=== PATIENT | male | born 1975 | race Two or more races ===

== ENCOUNTER 2020-07-01 15:36 | Emergency (ER) | payer SELFPAY ==
[2020-07-01] MEDS ORDERED: Sodium Chloride 0.9% 10 ML Syringe FLUSH PRN (15:46)
[2020-07-01] MEDS ORDERED: Aspirin 81 MG Tab.Chew PO ONE (15:46)
--- NOTE | 2020-07-01 17:09 | EDM.PDOC ---
ED HPI GENERAL MEDICAL PROBLEM - General Chief Complaint: Chest Pain Stated Complaint: CHEST PAIN Time Seen by Provider: 07/01/20 15:42 Source of Information: Reports: Patient History Limitations: Reports: No Limitations - History of Present Illness INITIAL COMMENTS - FREE TEXT/NARRATIVE: The patient presents with chest pain on the left. This woke him up at 4am. The pain is sharp and it comes and goes. He has no shortness of breath with it. Exertion does not make it worse. He has no fever, chills, cough, congestion, runny nose, abdominal pain, nausea, vomiting, pain or swelling in his legs. He does smoke. He has no other medical problems. He had an aunt that had pleurisy once. Onset: Gradual Duration: Hour(s): Location: Reports: Chest Quality: Reports: Sharp Severity: Moderate Improves with: Reports: None Worsens with: Reports: None Associated Symptoms: Reports: Chest Pain. Denies: Cough, Fever/Chills, Headaches, Nausea/Vomiting, Shortness of Breath Back Pain Score (Numeric/FACES): 4 - Related Data Allergies Allergy/AdvReac Type Severity Reaction Status Date / Time No Known Allergies Allergy Verified 07/01/20 15:50 Home Meds: Home Meds . [No Known Home Meds] 07/01/20 [History] Social & Family History - Tobacco Use Tobacco Use Status *Q: Current Every Day Tobacco User Years of Tobacco use: 30 Packs/Tins Daily: 0.5 ED ROS GENERAL - Review of Systems Review Of Systems: See Below Constitutional: Reports: No Symptoms HEENT: Reports: No Symptoms Respiratory: Reports: No Symptoms Cardiovascular: Reports: Chest Pain Endocrine: Reports: No Symptoms GI/Abdominal: Reports: No Symptoms : Reports: No Symptoms Musculoskeletal: Reports: No Symptoms Skin: Reports: No Symptoms ED EXAM, GENERAL - Physical Exam Exam: See Below Exam Limited By: No Limitations General Appearance: Alert, No Apparent Distress Ears: Normal External Exam Nose: Normal Inspection Head: Atraumatic, Normocephalic Neck: Normal Inspection Respiratory/Chest: No Respiratory Distress, Lungs Clear, Normal Breath Sounds Cardiovascular: Regular Rate, Rhythm, No Edema, No Murmur GI/Abdominal: Soft, Non-Tender, No Organomegaly, No Mass Back Exam: Normal Inspection Extremities: Normal Inspection #1 Interpretation EKG Date: 07/01/20 Time: 15:46 Rhythm: NSR Rate (Beats/Min): 91 [place]: Normal P-Wave: Present QRS: Normal ST-T: Normal QT: Normal Course - Vital Signs Last Recorded V/S: Last Vital Signs Temp 97.5 F 07/01/20 15:47 Pulse 92 07/01/20 15:47 Resp 16 07/01/20 15:47 BP 151/91 H 07/01/20 15:47 Pulse Ox 98 07/01/20 15:47 - Orders/Labs/Meds Orders: Active Orders 24 hr Category Date Time Status Cardiac Monitoring [RC] . DIRECTED Care 07/01/20 15:46 Active EKG Documentation Completion [RC] STAT Care 07/01/20 15:47 Active Peripheral IV Care [RC] . DIRECTED Care 07/01/20 15:47 Active Chest 2V [CR] Stat Exams 07/01/20 15:47 Taken Sodium Chloride 0.9% [Saline Flush] Med 07/01/20 15:46 Active 10 ml FLUSH ASDIRECTED PRN Peripheral IV Insertion Adult [OM.PC] Stat Oth 07/01/20 15:46 Ordered Medication Orders Sodium Chloride (Saline Flush) 10 ml FLUSH ASDIRECTED PRN PRN Reason: Keep Vein Open Labs: Laboratory Tests 07/01/20 07/01/20 07/01/20 Range/Units 16:15 16:15 16:15 WBC 5.95 (4.23-9.07) K/mm3 RBC 5.43 (4.63-6.08) M/mm3 Hgb 15.7 (13.7-17.5) gm/dl Hct 45.2 (40.1-51.0) % MCV 83.2 (79.0-92.2) fl MCH 28.9 (25.7-32.2) pg MCHC 34.7 (32.2-35.5) g/dl RDW Std Deviation 40.1 (35.1-43.9) fL Plt Count 298 (163-337) K/mm3 MPV 8.8 L (9.4-12.3) fl Neut % (Auto) 54.8 (34.0-67.9) % Lymph % (Auto) 33.8 (21.8-53.1) % [place] % (Auto) 9.4 (5.3-12.2) % Eos % (Auto) 1.3 (0.8-7.0) Baso % (Auto) 0.5 (0.1-1.2) % Neut # (Auto) 3.26 (1.78-5.38) K/mm3 Lymph # (Auto) 2.01 (1.32-3.57) K/mm3 [place] # (Auto) 0.56 (0.30-0.82) K/mm3 Eos # (Auto) 0.08 (0.04-0.54) K/mm3 Baso # (Auto) 0.03 (0.01-0.08) K/mm3 D-Dimer, Quantitative < 0.19 L (0.19-0.50) mg/L Sodium 138 (136-145) mEq/L Potassium 3.9 (3.5-5.1) mEq/L Chloride 105 (98-107) mEq/L Carbon Dioxide 25 (21-32) mEq/L Anion Gap 11.9 (5-15) BUN 14 (7-18) mg/dL Creatinine 1.2 (0.7-1.3) mg/dL Est Cr Clr Drug Dosing 77.74 mL/min Estimated GFR (MDRD) > 60 (>60) mL/min BUN/Creatinine Ratio 11.7 L (14-18) Glucose 114 H (74-106) mg/dL Calcium 8.9 (8.5-10.1) mg/dL Total Bilirubin 0.6 (0.2-1.0) mg/dL AST 16 (15-37) U/L ALT 42 (16-63) U/L Alkaline Phosphatase 68 (46-116) U/L Troponin I < 0.017 (0.00-0.056) ng/mL Total Protein 7.0 (6.4-8.2) g/dl Albumin 3.8 (3.4-5.0) g/dl Globulin 3.2 gm/dL Albumin/Globulin Ratio 1.2 (1-2) Meds: Medications Generic Name Dose Route Start Last Admin Trade Name Freq PRN Reason Stop Dose Admin Sodium Chloride 10 ml 07/01/20 15:46 Saline Flush FLUSH ASDIRECTED PRN Keep Vein Open Discontinued Medications Generic Name Dose Route Start Last Admin Trade Name Freq PRN Reason Stop Dose Admin Aspirin 324 mg 07/01/20 15:46 07/01/20 16:12 Aspirin PO 07/01/20 15:47 324 mg ONETIME ONE Administration - Re-Assessments/Exams Free Text/Narrative Re-Assessment/Exam: 07/01/20 17:17 I ordered an IV saline lock, aspirin, CXR, EKG and labs. His EKG shows a NSR with no acute changes. His CXR shows nothing acute. His CBC and CMP look good. His troponin and D-dimer is negative. Departure - Departure Time of Disposition: 17:25 Disposition: Home, Self-Care 01 Condition: Good Clinical Impression: Atypical chest pain, Pleurisy Referrals: PCP,None [Primary Care Provider] - Cassia Joshi, [employer] REPRESENTATIVE [Nurse Practitioner] - 1 Week Forms: ED Department Discharge Additional Instructions: Take aspirin or tylenol for pain. Please return if you are worse. Try to stop smoking. That can make this worse. Sepsis Event Note (ED) - Evaluation Sepsis Screening Result: No Definite Risk - Focused Exam Vital Signs: Vital Signs Temp Pulse Resp BP Pulse Ox 07/01/20 15:47 97.5 F 92 16 151/91 H 98 - My Orders Last 24 Hours: My Active Orders 07/01/20 15:46 Cardiac Monitoring [RC] . DIRECTED Sodium Chloride 0.9% [Saline Flush] 10 ml FLUSH ASDIRECTED PRN Peripheral IV Insertion Adult [OM.PC] Stat 07/01/20 15:47 EKG Documentation Completion [RC] STAT Peripheral IV Care [RC] . DIRECTED Chest 2V [CR] Stat - Assessment/Plan Last 24 Hours: My Active Orders 07/01/20 15:46 Cardiac Monitoring [RC] . DIRECTED Sodium Chloride 0.9% [Saline Flush] 10 ml FLUSH ASDIRECTED PRN Peripheral IV Insertion Adult [OM.PC] Stat 07/01/20 15:47 EKG Documentation Completion [RC] STAT Peripheral IV Care [RC] . DIRECTED Chest 2V [CR] Stat
--- NOTE | 2020-07-04 14:14 | CR ---
PROCEDURE INFORMATION: Exam: XR Chest, 2 Views Exam date and time: 07/01/2020 4:00 PM Age: 44 years old Clinical indication: Chest pain TECHNIQUE: Imaging protocol: XR of the chest Views: 2 views. COMPARISON: No relevant prior studies available. FINDINGS: Lungs: Atelectatic changes noted within the lung bases. Pleural space: Unremarkable. No pleural effusion. No pneumothorax. Heart/Mediastinum: Unremarkable. No cardiomegaly. Bones/joints: Unremarkable. IMPRESSION: Atelectatic changes noted within the lung bases. Thank you for allowing us to participate in the care of your patient. Dictated and Authenticated by: Grover Fischer DO 07/01/2020 5:23 PM Central Time ([place] & [place]) LAURIE
== END 2020-07-01 17:27 | disposition home or self-care (01) ==
LOC: JD.ED 15:36
DX: R09.1 Pleurisy (principal); R07.89 Other chest pain; F17.210 Nicotine dependence, cigarettes, uncomplicated
CPT/HCPCS: 36415; 71046; 80053; 84484; 85025; 85379; 93005; 99285; A9270; 93010; 99283

== ENCOUNTER 2021-11-01 20:12 | Emergency (ER) | payer SELFPAY ==
[2021-11-01] MEDS ORDERED: cefTRIAXone 250 MG Vial IM ONE (20:46)
[2021-11-01] MEDS ORDERED: Azithromycin 250 MG Tab PO ONE (20:47)
[2021-11-01] MEDS ORDERED: Lidocaine 1% 20 ML MDV INJECT ONE (21:08)
[2021-11-01] MEDS ORDERED: Lidocaine 1% 2 ML ONE (21:10)
[2021-11-01] MEDS ORDERED: Lidocaine 1% PF 2 ML SDV INJECT ONE (21:16)
[2021-11-01 23:03] LABS: C. TRACHOMATIS BY PCR NOT DETECTED; N. GONORRHOEAE BY PCR NOT DETECTED
== END 2021-11-01 22:00 | disposition home or self-care (01) ==
LOC: JD.ED 20:12
DX: N34.2 Other urethritis (principal); Z79.899 Other long term (current) drug therapy
CPT/HCPCS: 81001; 87086; 87491; 87591; 96372; 99283; A9270; J0696